=== PATIENT | female | born 1955 | race Caucasian/White ===

== ENCOUNTER → 2017-04-02 | Outpatient (CLI) | payer OTHER | LOC: BMCIMAGING 14:42 | PROVIDERS: ATTEND Family Medicine | DX: Z13.820 Encounter for screening for osteoporosis (principal); M81.0 Age-related osteoporosis without current pathological fracture ==

== ENCOUNTER → 2017-05-14 | Outpatient (CLI) | payer OTHER | LOC: BMCIMAGING 08:38 | PROVIDERS: ATTEND Obstetrics & Gynecology Gynecology | DX: Z12.31 Encounter for screening mammogram for malignant neoplasm of breast (principal) ==

== ENCOUNTER 2017-06-26 15:08 | Emergency (ER) | payer OTHER ==
[2017-06-26 15:17] VITALS: BP 119/71
--- NOTE | 2017-06-26 15:21 | EDPHY ---
H & P Time Seen by Provider: 06/26/17 15:17 HPI/ROS: Chief complaint. Calf pain HPI. 8-year-old female with right calf pain for 2 days. She had parathyroid surgery in [place] on June 16. She has noted burning sensation in the posterior calf. No symptoms above the knee. No chest discomfort or trouble breathing. No swelling to the leg. No trauma. Some increased discomfort with walking. No history of thromboembolic disease ROS Constitutional. no fever/chills, no weakness Eyes. no problems with vision ENT. no sore throat, no nasal drainage Cardiovascular. no chest pain Respiratory. no shortness of breath, no cough Abdominal. no abdominal pain, no nausea/vomiting, no diarrhea . no problems urinating MS. Right calf pain Skin. no rash Lymph. no swollen glands Neuro. no headache, no dizziness, no difficulty walking or with speech Past Medical/Surgical History: Parathyroid surgery Social History: , nonsmoker, no alcohol Smoking Status: Never smoked Physical Exam: General Appearance: Alert well-developed female mild distress vital signs are stable Eyes: Pupils equal and round no pallor or injection. ENT, Mouth: Mucous membranes are moist. Respiratory: There are no retractions, lungs are clear to auscultation. Cardiovascular: Regular rate and rhythm. Gastrointestinal: Abdomen is soft and nontender, no masses, bowel sounds normal. Neurological: Awake and alert, sensory and motor exams grossly normal. Skin: Warm and dry, no rashes. Musculoskeletal: Neck is supple nontender. Extremities symmetrical, full range of motion. Tenderness to palpation right calf. No swelling or erythema. Psychiatric: Patient is oriented X 3, there is no agitation. Constitutional: Initial Vital Signs Temperature (C) 36.4 C 06/26/17 15:12 Heart Rate 67 06/26/17 15:12 Respiratory Rate 16 06/26/17 15:12 Blood Pressure 119/71 06/26/17 15:12 O2 Sat (%) 97 06/26/17 15:12 O2 Delivery Mode Room Air Allergies/Adverse Reactions: Penicillins Allergy (Unknown, Verified 09/29/12 18:49) Home Medications: Medication Instructions Recorded NK [No Known Home Meds] 06/26/17 Medical Decision Making - Diagnostics Imaging Results: Imaging Impressions Extremity Venous Study 06/26/17 15:20 Impression: No deep venous thrombosis right leg. Results called to Dr. Amandeep Galaviz at 3:50 PM. Ultrasound reviewed by me and discussed with Dr. Vuong is negative for DVT ED Course/Re-evaluation: Re-evaluation 3:55 p.m.. Patient is stable. She and I discussed imaging study results, treatment plan including criteria for return importance of follow-up and further evaluation. She expresses understanding and agreement Differential Diagnosis: The patient has recently had surgery and has calf pain. I considered DVT in thromboembolic disease. I also considered calf strain and Achilles muscle tear. Departure - Departure Disposition: Home, Routine, Self-Care Clinical Impression: Right calf pain Condition: Good Instructions: Leg Cramps (ED) Additional Instructions: Activity as tolerated. Return for worsening symptoms. Referrals: VIVIAN JACK [Primary Care Provider] - As per Instructions
== END 2017-06-26 16:05 | disposition home or self-care (01) ==
DX: M79.661 Pain in right lower leg (principal)

== ENCOUNTER → 2017-12-20 | Outpatient (CLI) | payer OTHER | LOC: FIMAGING 11:54 | PROVIDERS: ATTEND Family Medicine | DX: R91.1 Solitary pulmonary nodule (principal); R91.8 Other nonspecific abnormal finding of lung field ==